=== PATIENT | male | born 1985 | race Caucasian/White ===

== ENCOUNTER 2019-11-14 13:53 | Emergency (ER) | payer OTHER ==
[2019-11-14] MEDS ORDERED: Sodium Chloride 0.9% 10 ML Syringe FLUSH PRN (14:19)
[2019-11-14] MEDS ORDERED: Ondansetron 4 MG/2 ML SDV IVPUSH ONE (14:20)
[2019-11-14] MEDS ORDERED: Alum Hydrox/Mag Hydrox/Simeth 30 ML, Lidocaine 2% 15 ML PO ONE ×2 (14:59)
--- NOTE | 2019-11-14 15:04 | EDM.PDOC ---
ED HPI GENERAL MEDICAL PROBLEM - General Chief Complaint: Chest Pain Stated Complaint: CHEST/BACK PAIN Time Seen by Provider: 11/14/19 14:19 Source of Information: Reports: Patient, RN Notes Reviewed History Limitations: Reports: No Limitations - History of Present Illness INITIAL COMMENTS - FREE TEXT/NARRATIVE: Patient is a 33-year-old male who presents to the ED for the evaluation of some lower chest pain/back pain. The patient states that this started around 2 hours ago. He notes that he was laying on his couch when he suddenly developed the pain. The patient notes this is more in his epigastrium/mid chest, with radiation to his back. Patient states that he has been nauseated, but has not had any vomiting. Patient notes that he last ate at around 9:30am this morning , and had a sausage egg sandwich. He did not have lunch. Patient denies any other sick-like symptoms. He denies any other cardiac history or lung history. Patient states that he stopped smoking 6 months ago, he does drink vodka sodas on a daily basis, and states last night he did drink a little bit more than he normally does. Patient notes the pain to be a dull ache/gnawing pain in nature, and is constant. Patient thinks that the pain did start roughly 1/2- hour to an hour after eating. Chest Pain Score (Numeric/FACES): 7 - Related Data Allergies Allergy/AdvReac Type Severity Reaction Status Date / Time No Known Allergies Allergy Verified 11/14/19 13:59 Home Meds: Home Meds Hyoscyamine [Hyomax-SL] 0.125 mg SL Q4H PRN #20 tab.sl 11/14/19 [Rx] Ondansetron [Zofran ODT] 4 mg PO Q8H PRN #20 tab.dis 11/14/19 [Rx] Past Medical History - Past Health History Medical/Surgical History: Denies Medical/Surgical History - Infectious Disease History Infectious Disease History: Reports: Chicken Pox Social & Family History - Family History Family Medical History: Noncontributory - Tobacco Use Smoking Status *Q: Former Smoker Used Tobacco, but Quit: Yes Month/Year Tobacco Last Used: 08/2019 - Alcohol Use Alcohol Use History: Yes Days Per Week of Alcohol Use: 7 Days Per Week of Alcohol Use Comment: vodka sodas Number of Drinks Per Day: 3 Total Drinks Per Week: 21 Alcohol Use in Last Twelve Months: Yes Alcohol Use Frequency: Daily - Recreational Drug Use Recreational Drug Use: No ED ROS GENERAL - Review of Systems Review Of Systems: See Below Constitutional: Denies: Fever, Chills, Decreased Appetite Respiratory: Denies: Shortness of Breath, Cough Cardiovascular: Reports: Chest Pain (epigastric/). Denies: Blood Pressure Problem, Dyspnea on Exertion, Edema, Lightheadedness, Palpitations GI/Abdominal: Reports: Abdominal Pain (epgastrium with radiation to back), Nausea. Denies: Vomiting : Denies: Dysuria, Frequency, Urgency Musculoskeletal: Reports: Back Pain (that radiates from front lower chest/ epigastrium). Denies: Neck Pain, Arm Pain Neurological: Denies: Dizziness, Headache Psychiatric: Denies: Anxiety ED EXAM, GENERAL - Physical Exam Exam: See Below Exam Limited By: No Limitations General Appearance: Alert, WD/WN, No Apparent Distress Eye Exam: Bilateral Eye: EOMI, Normal Inspection, PERRL Throat/Mouth: Normal Inspection, Normal Lips, Normal Teeth, Normal Gums, Normal Oropharynx, Normal Voice, No Airway Compromise Head: Atraumatic, Normocephalic Neck: Normal Inspection, Supple, Non-Tender, Full Range of Motion Respiratory/Chest: No Respiratory Distress, Lungs Clear, Normal Breath Sounds, No Accessory Muscle Use, Chest Non-Tender Cardiovascular: Normal Peripheral Pulses, Regular Rate, Rhythm, No Edema, No JVD , No Murmur Peripheral Pulses: 3+: Radial (L), Radial (R) GI/Abdominal: Normal Bowel Sounds, Soft, Non-Tender, No Distention, No Mass Extremities: Normal Inspection, Normal Capillary Refill Neurological: Alert, Oriented, Normal Cognition, No Motor/Sensory Deficits Psychiatric: Normal Affect, Normal Mood Skin Exam: Warm, Dry, Intact, Normal Color, No Rash Course - Vital Signs Last Recorded V/S: Last Vital Signs Temp 97.4 F 11/14/19 13:59 Pulse 85 11/14/19 13:59 Resp 16 11/14/19 13:59 BP 164/100 H 11/14/19 13:59 Pulse Ox 99 11/14/19 13:59 - Orders/Labs/Meds Orders: Active Orders 24 hr Category Date Time Status EKG Documentation Completion [RC] STAT Care 11/14/19 14:19 Active Peripheral IV Care [RC] . DIRECTED Care 11/14/19 14:19 Active Sodium Chloride 0.9% [Saline Flush] Med 11/14/19 14:19 Active 10 ml FLUSH ASDIRECTED PRN Peripheral IV Insertion Adult [OM.PC] Stat Oth 11/14/19 14:19 Ordered Medication Orders Sodium Chloride (Saline Flush) 10 ml FLUSH ASDIRECTED PRN PRN Reason: Keep Vein Open Last Admin: 11/14/19 14:31 Dose: 10 ml Labs: Laboratory Tests 11/14/19 11/14/19 11/14/19 Range/Units 14:30 14:30 14:30 WBC 5.08 (4.23-9.07) K/mm3 RBC 5.26 (4.63-6.08) M/mm3 Hgb 15.5 (13.7-17.5) gm/dl Hct 46.6 (40.1-51.0) % MCV 88.6 (79.0-92.2) fl MCH 29.5 (25.7-32.2) pg MCHC 33.3 (32.2-35.5) g/dl RDW Std Deviation 42.1 (35.1-43.9) fL Plt Count 295 (163-337) K/mm3 MPV 9.3 L (9.4-12.3) fl Neutrophils % (Manual) 45 (40-60) % Band Neutrophils % 1 (0-10) % Lymphocytes % (Manual) 41 H (20-40) % Atypical Lymphs % 0 % Monocytes % (Manual) 7 (2-10) % Eosinophils % (Manual) 6 (0.8-7.0) % Basophils % (Manual) 0 L (0.2-1.2) Platelet Estimate Adequate Plt Morphology Comment Normal RBC Morph Comment Normal PT 10.3 (9.7-12.0) SECONDS INR 0.94 APTT 26 (22-31) SECONDS Sodium 142 (136-145) mEq/L Potassium 3.7 (3.5-5.1) mEq/L Chloride 105 (98-107) mEq/L Carbon Dioxide 28 (21-32) mEq/L Anion Gap 12.7 (5-15) BUN 9 (7-18) mg/dL Creatinine 1.0 (0.7-1.3) mg/dL Est Cr Clr Drug Dosing 130.20 mL/min Estimated GFR (MDRD) > 60 (>60) mL/min BUN/Creatinine Ratio 9.0 L (14-18) Glucose 101 (74-106) mg/dL Calcium 9.7 (8.5-10.1) mg/dL Magnesium 1.9 (1.8-2.4) mg/dl Total Bilirubin 0.4 (0.2-1.0) mg/dL GGT (15-85) U/L AST 16 (15-37) U/L ALT 44 (16-63) U/L Alkaline Phosphatase 74 (46-116) U/L Troponin I < 0.017 (0.00-0.056) ng/mL NT-Pro-B Natriuret Pep (0-125) pg/mL Total Protein 8.2 (6.4-8.2) g/dl Albumin 4.2 (3.4-5.0) g/dl Globulin 4.0 gm/dL Albumin/Globulin Ratio 1.1 (1-2) Lipase 107 (73-393) U/L 11/14/19 11/14/19 Range/Units 14:30 14:30 WBC (4.23-9.07) K/mm3 RBC (4.63-6.08) M/mm3 Hgb (13.7-17.5) gm/dl Hct (40.1-51.0) % MCV (79.0-92.2) fl MCH (25.7-32.2) pg MCHC (32.2-35.5) g/dl RDW Std Deviation (35.1-43.9) fL Plt Count (163-337) K/mm3 MPV (9.4-12.3) fl Neutrophils % (Manual) (40-60) % Band Neutrophils % (0-10) % Lymphocytes % (Manual) (20-40) % Atypical Lymphs % % Monocytes % (Manual) (2-10) % Eosinophils % (Manual) (0.8-7.0) % Basophils % (Manual) (0.2-1.2) Platelet Estimate Plt Morphology Comment RBC Morph Comment PT (9.7-12.0) SECONDS INR APTT (22-31) SECONDS Sodium (136-145) mEq/L Potassium (3.5-5.1) mEq/L Chloride (98-107) mEq/L Carbon Dioxide (21-32) mEq/L Anion Gap (5-15) BUN (7-18) mg/dL Creatinine (0.7-1.3) mg/dL Est Cr Clr Drug Dosing mL/min Estimated GFR (MDRD) (>60) mL/min BUN/Creatinine Ratio (14-18) Glucose (74-106) mg/dL Calcium (8.5-10.1) mg/dL Magnesium (1.8-2.4) mg/dl Total Bilirubin (0.2-1.0) mg/dL GGT 116 H (15-85) U/L AST (15-37) U/L ALT (16-63) U/L Alkaline Phosphatase (46-116) U/L Troponin I (0.00-0.056) ng/mL NT-Pro-B Natriuret Pep 25 (0-125) pg/mL Total Protein (6.4-8.2) g/dl Albumin (3.4-5.0) g/dl Globulin gm/dL Albumin/Globulin Ratio (1-2) Lipase (73-393) U/L Meds: Medications Generic Name Dose Route Start Last Admin Trade Name Freq PRN Reason Stop Dose Admin Sodium Chloride 10 ml 11/14/19 14:19 11/14/19 14:31 Saline Flush FLUSH 10 ml ASDIRECTED PRN Administration Keep Vein Open Discontinued Medications Generic Name Dose Route Start Last Admin Trade Name Freq PRN Reason Stop Dose Admin Al Hydroxide/Mg Hydroxide 30 0 ml 11/14/19 14:59 11/14/19 15:28 ml/ Lidocaine HCl 15 ml PO 11/14/19 15:00 45 ml ONETIME ONE Administration Hyoscyamine 0.125 mg 11/14/19 16:06 11/14/19 16:18 Hyomax-Sl SL 11/14/19 16:07 0.125 mg ONETIME ONE Administration Hyoscyamine 0.125 mg 11/14/19 17:56 Hyomax-Sl SL 11/14/19 17:57 ONETIME ONE Ondansetron HCl 4 mg 11/14/19 14:20 11/14/19 14:31 Zofran IVPUSH 11/14/19 14:21 4 mg ONETIME ONE Administration - Re-Assessments/Exams Free Text/Narrative Re-Assessment/Exam: 11/14/19 15:05 Patient presents to the ED for lower chest/epigastric pain with radiation to his back. Patient does have a port extensive alcohol use history, suspect possible alcoholic pancreatitis versus reflux disease versus gallbladder disease in nature. EKG was done and demonstrates no acute ST changes at this time. Reviewed with Dr. Mix. I did order other labs for further evaluation , chest x-ray and 4mg Zofran with a GI cocktail for initial management. 11/14/19 16:06 Patient's chest x-ray is within normal limits. All other laboratory evaluation seems to be within normal limits as well, lipase is within normal limits. The patient's GGT was slightly elevated at 116. Since the patient has not eaten since 9:30 this morning, I will go ahead and order a gallbladder ultrasound for further evaluation. 11/14/19 17:58 The patient's gallbladder ultrasound demonstrates a hypoechoic area within the mid right kidney most likely representing a parapelvic cyst. Minimal sludge within the gallbladder without shadowing gallstones or gallbladder with wall thickening. Upper limits of normal size of the common bile duct, which is 7.0 mm. There is an obscured pancreas, otherwise no other abnormalities noted. Patient did report good pain relief from the Levsin, I will provide him with a few tablets of this and Zofran on outpatient basis, I did call Dr. Calix for further referral, and he suggests getting an outpatient MRCP for further evaluation and trialing Prilosec to see if this doesn't also help symptoms. I will provide the patient with an outpatient order for this, and have him follow- up with his regular care provider or Dr. Calix. Departure - Departure Time of Disposition: 18:00 Disposition: Home, Self-Care 01 Condition: Good Clinical Impression: Biliary colic, Common bile duct dilation Prescriptions: Hyoscyamine [Hyomax-SL] 0.125 mg SL Q4H PRN #20 tab.sl PRN Reason: Pain Ondansetron [Zofran ODT] 4 mg PO Q8H PRN #20 tab.dis PRN Reason: Nausea Instructions: Magnetic Resonance Cholangiopancreatogram, Biliary Colic, Adult, Gallbladder Eating Plan Referrals: PCP,None [Primary Care Provider] - Forms: ED Department Discharge Additional Instructions: You were evaluated in the ER today regarding your epigastric pain. Your laboratory evaluation demonstrated that the pain is not of cardiac etiology and is more suggestive of gallbladder etiology. Your ultrasound demonstrated some sludge in your gallbladder, and a dilated common bile duct. Our general surgeon, Dr. Ifeanyi Calix was consulted on your case, and he suggested getting an outpatient MRCP, which is an MRI of your bile duct system to further evaluate function of your gallbladder. It was also suggested that you trial Prilosec (omeprazole) on an outpatient basis, you may obtain this at any retail space like [email or web address], or any pharmacy. Please take as directed on the back of the box, it's usually 40 mg or 1 tablet daily. You have been provided with a gallbladder diet eating plan, please try to avoid fatty foods as much as possible, as these types of foods aggravate pain from the gallbladder. You were given a prescription for Levsin, which is a smooth muscle relaxer, that works directly on the gallbladder pain as a seem to help your pain mostly in the ER. Please take 1 tab every 4 hours dissolvable by tongue as needed for further pain relief. You were given some tablets of Zofran, and antinausea medication, please take 1 tab dissolvable by tongue every 8 hours as needed for further nausea. These prescriptions were electronically prescribed to the [facility] pharmacy located on [place], you will need to go there tomorrow, Friday, November 15, 2019 and fill these medications and take as prescribed. You may call our clinic, to obtain a follow-up appointment with Dr. Calix, or you may also follow-up with your regular care provider, Dr. Patel if desired, a copy of the MRCP will be provided to both providers. Please return to the ER at any time however if symptoms change or worsen. Sepsis Event Note - Evaluation Sepsis Screening Result: No Definite Risk - Focused Exam Vital Signs: Vital Signs Temp Pulse Resp BP Pulse Ox 11/14/19 13:59 97.4 F 85 16 164/100 H 99 Date Exam was Performed: 11/14/19 Time Exam was Performed: 17:58 - My Orders Last 24 Hours: My Active Orders 11/14/19 14:19 EKG Documentation Completion [RC] STAT Peripheral IV Care [RC] . DIRECTED Sodium Chloride 0.9% [Saline Flush] 10 ml FLUSH ASDIRECTED PRN Peripheral IV Insertion Adult [OM.PC] Stat - Assessment/Plan Last 24 Hours: My Active Orders 11/14/19 14:19 EKG Documentation Completion [RC] STAT Peripheral IV Care [RC] . DIRECTED Sodium Chloride 0.9% [Saline Flush] 10 ml FLUSH ASDIRECTED PRN Peripheral IV Insertion Adult [OM.PC] Stat
--- NOTE | 2019-11-14 15:10 | CR ---
Chest: 2 views of the chest were obtained. Comparison: No prior chest imaging is available. Heart size and mediastinum are normal. Lungs are clear with no acute parenchymal change. Bony structures are unremarkable for the patient's age. Impression: 1. Nothing acute is appreciated on 2 view chest x-ray. Diagnostic code #1 Study was dictated in MDT
[2019-11-14] MEDS ORDERED: Hyoscyamine 0.125 MG Tab.SL SL ONE ×2 (16:06→17:56)
--- NOTE | 2019-11-14 17:33 | US ---
Limited abdominal ultrasound: Multiple real-time images of the upper right abdomen were obtained. Comparison: No prior abdominal imaging is available. Liver shows no focal parenchymal abnormality. Minimal sludge is seen within the gallbladder. Gallbladder shows no shadowing gallstones. No gallbladder wall thickening is seen. Common bile duct measures at the upper limits of normal at 7.0 mm. Hypoechoic area is noted within the mid right kidney most likely representing a parapelvic cyst measuring 4.4 cm in greatest dimension. Pancreas is completely obscured from bowel gas. Inferior vena cava is patent. Main portal vein shows normal hepatopedal flow. Impression: 1. Hypoechoic area within the mid right kidney most likely representing a parapelvic cyst. 2. Minimal sludge within the gallbladder without shadowing gallstones or gallbladder wall thickening. 3. Upper limits of normal size of the CBD. 4. Obscured pancreas. Diagnostic code #2 Study was dictated in MDT
== END 2019-11-14 18:26 | disposition home or self-care (01) ==
LOC: JD.ED 13:53
DX: K80.50 Calculus of bile duct without cholangitis or cholecystitis without obstruction (principal); K83.8 Other specified diseases of biliary tract; Z87.891 Personal history of nicotine dependence
CPT/HCPCS: 36415; 71046; 76705; 80053; 82977; 83690; 83735; 83880; 84484; 85007; 85027; 85610; 85730; 93005; 96374; 99285; A9270; J2405; 93010; 99284

== ENCOUNTER 2020-02-21 09:13 | Emergency (ER) | payer OTHER ==
[2020-02-21] MEDS ORDERED: Naproxen 500 MG Tab PO ONE (09:57)
[2020-02-21] MEDS ORDERED: Cyclobenzaprine 10 MG Tab PO ONE (09:57)
[2020-02-21] MEDS ORDERED: Acetaminophen/HYDROcodone 325-5 MG Tab PO ONE (09:57)
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
--- NOTE | 2020-02-21 10:33 | CT ---
CT lumbar spine Technique: Multiple axial sections through the lumbar spine were obtained from above T12 inferiorly through the L5-S1 disc. Reconstructed coronal and sagittal images were obtained. Findings: Vertebral body heights are maintained. Schmorl node deformities are scattered throughout the spine. Moderate disc space narrowing is seen at L4-5. Circumferential disc bulge is noted at L4-5. Mild left-sided neural foraminal stenosis noted at L4-5. No fracture is appreciated. No abnormal subluxation is seen. Impression: 1. Degenerative change at L4-5 as described above. 2. Slight scoliosis. 3. Nothing acute is appreciated on CT study of the lumbar spine. Diagnostic code #2 This report was dictated in MDT
== END 2020-02-21 11:34 | disposition home or self-care (01) ==
LOC: JD.ED 09:13
DX: M54.41 Lumbago with sciatica, right side (principal); V86.59XA Driver of other special all-terrain or other off-road motor vehicle injured in nontraffic accident, initial encounter
CPT/HCPCS: 72131; 99284; A9270; 99283

== ENCOUNTER 2024-08-08 08:23 | Emergency (ER) | payer OTHER ==
[2024-08-08] MEDS ORDERED: Sodium Chloride 0.9% 10 ML Syringe FLUSH PRN (08:55)
[2024-08-08 09:17] LABS: BASOPHILS ABSOLUTE AUTO 0.1 K/mm3 (0.0-0.2); BASOPHILS PERCENT AUTO 0.7 % (0.0-1.0); EOSINOPHILS ABSOLUTE AUTO 0.2 K/mm3 (0.0-0.4); EOSINOPHILS PERCENT AUTO 2.5 % (0.0-6.0); HEMATOCRIT 51.8 % (42.0-52.0); HEMOGLOBIN 18.2 gm/dl (14.0-18.0); IMMATURE GRAN ABSOLUTE AUTO 0.03 K/mm3 (0.00-0.05); IMMATURE GRAN PERCENT AUTO 0.4 % (0.0-0.4); LYMPHOCYTES ABSOLUTE AUTO 2.2 K/mm3 (1.0-4.8); LYMPHOCYTES PERCENT AUTO 25.6 % (24.0-44.0); MEAN CORPUSCULAR HEMOGLOBIN 31.9 pg (28.0-32.0); MEAN CORPUSCULAR HGB CONC 35.1 g/dl (32.0-36.0); MEAN CORPUSCULAR VOLUME 90.9 fl (83.0-99.0); MEAN PLATELET VOLUME 9.4 fl (9.4-12.4); MONOCYTES PERCENT AUTO 11.3 % (0.0-8.0); NEUTROPHILS ABSOLUTE AUTO 5.1 K/mm3 (1.8-7.7); NEUTROPHILS PERCENT AUTO 59.5 % (41.0-71.0); PLATELET COUNT,PLT 348 K/mm3 (150-400); WHITE BLOOD CELL COUNT,WBC 8.53 K/mm3 (3.9-11.3)
[2024-08-08 09:29] LABS: A/G RATIO 0.8 (1-2); ALANINE AMINOTRANSFERASE,ALT 133 U/L (16-63); ALBUMIN 3.7 g/dl (3.4-5.0); ALKALINE PHOSPHATASE 100 U/L (46-116); ANION GAP 17.2 (5-15); ASPARTATE AMNIOTRANSFERASE,AST 127 U/L (15-37); BILIRUBIN TOTAL 0.7 mg/dL (0.2-1.0); BLOOD UREA NITROGEN,BUN 3 mg/dL (7-18); CALCIUM 8.9 mg/dL (8.5-10.1); CARBON DIOXIDE,CO2 28 mEq/L (21-32); CHLORIDE,CL 98 mEq/L (98-107); EST CRCL DRUG DOSING (CG) 127.46 mL/min; ESTIMATED GFR 99 mL/min (>60); GLUCOSE RANDOM 94 mg/dL (70-99); MAGNESIUM 1.8 mg/dL (1.8-2.4); POTASSIUM,K 3.2 mEq/L (3.5-5.1); PROTEIN TOTAL,TP 8.5 g/dl (6.4-8.2); SODIUM,NA 140 mEq/L (136-145); TROPONIN I HIGH SENSITIVITY < 4 pg/mL (<=76)
[2024-08-08] MEDS: Aspirin 81 MG Tab.Chew PO ONE (10:08)
== END 2024-08-08 11:02 | disposition home or self-care (01) ==
LOC: JD.ED 08:23
DX: R07.89 Other chest pain (principal); J06.9 Acute upper respiratory infection, unspecified; B97.89 Other viral agents as the cause of diseases classified elsewhere; F17.210 Nicotine dependence, cigarettes, uncomplicated; Z79.899 Other long term (current) drug therapy
CPT/HCPCS: 36415; 71046; 71046-26; 80053; 83735; 84484; 85025; 85379; 87428-QW; 93005; 99285

== ENCOUNTER 2024-08-17 19:22 | Inpatient (IN) | payer OTHER ==
[2024-08-17] MEDS ORDERED: Sodium Chloride 0.9% 10 ML Syringe FLUSH PRN (19:43)
[2024-08-17] MEDS ORDERED: Naloxone 0.4 MG/ML SDV IVPUSH PRN ×2 (20:22→21:15)
[2024-08-17] MEDS: HYDROmorphone 0.5 MG/0.5 ML Syringe IVPUSH ONE ×2 (20:43→21:21)
[2024-08-17] MEDS: Sodium Chloride 0.9% 1,000 ML IV ONE ×2 (20:43→22:00)
[2024-08-17] MEDS: Ondansetron 4 MG/2 ML SDV IVPUSH ONE (20:44)
[2024-08-17 21:01] LABS: BASOPHILS ABSOLUTE AUTO 0.1 K/mm3 (0.0-0.2); BASOPHILS PERCENT AUTO 0.5 % (0.0-1.0); EOSINOPHILS ABSOLUTE AUTO 0.2 K/mm3 (0.0-0.4); EOSINOPHILS PERCENT AUTO 1.9 % (0.0-6.0); HEMATOCRIT 49.2 % (42.0-52.0); HEMOGLOBIN 17.4 gm/dl (14.0-18.0); IMMATURE GRAN ABSOLUTE AUTO 0.03 K/mm3 (0.00-0.05); IMMATURE GRAN PERCENT AUTO 0.3 % (0.0-0.4); LYMPHOCYTES ABSOLUTE AUTO 1.5 K/mm3 (1.0-4.8); LYMPHOCYTES PERCENT AUTO 14.2 % (24.0-44.0); MEAN CORPUSCULAR HGB CONC 35.4 g/dl (32.0-36.0); MEAN CORPUSCULAR VOLUME 90.6 fl (83.0-99.0); MEAN PLATELET VOLUME 9.4 fl (9.4-12.4); MONOCYTES ABSOLUTE AUTO 1.4 K/mm3 (0.0-0.8); MONOCYTES PERCENT AUTO 12.6 % (0.0-8.0); NEUTROPHILS ABSOLUTE AUTO 7.7 K/mm3 (1.8-7.7); NEUTROPHILS PERCENT AUTO 70.5 % (41.0-71.0); PLATELET COUNT,PLT 287 K/mm3 (150-400); RED BLOOD CELL COUNT 5.43 M/mm3 (4.52-5.90); WHITE BLOOD CELL COUNT,WBC 10.85 K/mm3 (3.9-11.3)
[2024-08-17 21:35] LABS: A/G RATIO 0.9 (1-2); ALANINE AMINOTRANSFERASE,ALT 122 U/L (16-63); ALBUMIN 3.6 g/dl (3.4-5.0); ALKALINE PHOSPHATASE 94 U/L (46-116); ASPARTATE AMNIOTRANSFERASE,AST 110 U/L (15-37); BILIRUBIN TOTAL 1.8 mg/dL (0.2-1.0); BLOOD UREA NITROGEN,BUN 7 mg/dL (7-18); BUN/CREATININE RATIO 5.8 (14-18); CARBON DIOXIDE,CO2 28 mEq/L (21-32); CHLORIDE,CL 100 mEq/L (98-107); CREATININE 1.2 mg/dL (0.7-1.3); EST CRCL DRUG DOSING (CG) 106.22 mL/min; ESTIMATED GFR 80 mL/min (>60); GLUCOSE RANDOM 114 mg/dL (70-99); MAGNESIUM 1.2 mg/dL (1.8-2.4); PROTEIN TOTAL,TP 7.8 g/dl (6.4-8.2); SODIUM,NA 139 mEq/L (136-145)
[2024-08-17 21:52] LABS: LACTIC ACID 2.9 mmol/L (0.4-2.0); LIPASE 294 U/L (16-77); TROPONIN I HIGH SENSITIVITY < 4 pg/mL (<=76)
[2024-08-17] MEDS: Iopamidol 612 MG/ML 100 ML Bottle IVPUSH ONE (22:06)
[2024-08-17] MEDS: Ketorolac 30 MG/ML SDV IVPUSH ONE (22:42)
[2024-08-17] MEDS: Sodium Chloride 0.9% 1,000 ML ONE (22:44)
[2024-08-18 00:04] LABS: APPEARANCE,URINE CLEAR (Clear); BILIRUBIN,URINE 1+ (Negative); COLOR,URINE DARK YELLOW (Yellow); GLUCOSE,URINE NEGATIVE (Negative); KETONES,URINE NEGATIVE (Negative); LEUKOCYTE ESTERASE,URINE NEGATIVE (Negative); NITRITE,URINE NEGATIVE (Negative); OCCULT BLOOD,URINE NEGATIVE (Negative); PROTEIN,URINE 2+ (Negative); UROBILINOGEN,URINE 0.2 (0.2-1.0)
[2024-08-18 00:13] LABS: BARBITURATE SCREEN,URINE NEGATIVE (CUTOFF=200); BENZODIAZEPINES SCREEN,URINE PRESUMPTIVE POSITIVE (CUTOFF=150); BUPRENORPHINE SCREEN,URINE NEGATIVE (CUTOFF=10); METHADONE SCREEN, URINE NEGATIVE (CUT0FF=200); METHAMPHETAMINES SCREEN, URINE PRESUMPTIVE POSITIVE (CUTOFF=500); OXYCODONE SCREEN,URINE NEGATIVE (CUT0FF=100); THC SCREEN,URINE 20 NG/ML NEGATIVE (CUTOFF=50)
[2024-08-18 00:27] LABS: AMPHETAMINES SCREEN, URINE PRESUMPTIVE POSITIVE (CUTOFF=500)
[2024-08-18] MEDS: Sodium Chloride 0.9% 1,000 ML IV ONE (01:38)
[2024-08-18] MEDS: HYDROmorphone 0.5 MG/0.5 ML Syringe IVPUSH PRN (01:38)
[2024-08-18] MEDS: Melatonin 3 MG Tab PO PRN (02:48)
[2024-08-18] MEDS: Ketorolac 30 MG/ML SDV IV PRN (02:51)
[2024-08-18] MEDS: Lactated Ringers 1,000 ML IV ONE ×2 (06:23→07:58)
[2024-08-18] MEDS: Lactated Ringers 1,000 ML ONE (08:00)
[2024-08-18] MEDS: Enoxaparin 40 MG/0.4 ML Syringe SUBCUT SCH (08:00)
[2024-08-18] MEDS: Potassium Chloride 10 MEQ in Premix Bag 1 BAG IV SCH (09:00)
[2024-08-18] MEDS: Magnesium Sulfate/Water Premix 4 GM in Premix Bag 1 BAG IV ONE (09:02)
[2024-08-18] MEDS ORDERED: NS + KCl 20mEq/L 1,000 ML IV SCH (09:30)
[2024-08-18] MEDS ORDERED: Lactated Ringers 1,000 ML IV SCH (12:00)
[2024-08-18] MEDS: NS + KCl 20mEq/L 1,000 ML IV SCH (14:14)
[2024-08-18] MEDS: oxyCODONE 5 MG Tab PO PRN (20:55)
[2024-08-19] MEDS: Acetaminophen 325 MG Tab PO PRN (00:01)
[2024-08-19] MEDS: Temazepam 15 MG Cap PO PRN (00:01)
[2024-08-19 04:38] LABS: BASOPHILS PERCENT AUTO 0.5 % (0.0-1.0); EOSINOPHILS ABSOLUTE AUTO 0.3 K/mm3 (0.0-0.4); EOSINOPHILS PERCENT AUTO 2.9 % (0.0-6.0); HEMATOCRIT 44.1 % (42.0-52.0); HEMOGLOBIN 14.6 gm/dl (14.0-18.0); IMMATURE GRAN ABSOLUTE AUTO 0.03 K/mm3 (0.00-0.05); IMMATURE GRAN PERCENT AUTO 0.3 % (0.0-0.4); LYMPHOCYTES PERCENT AUTO 12.1 % (24.0-44.0); MEAN CORPUSCULAR HEMOGLOBIN 31.4 pg (28.0-32.0); MEAN CORPUSCULAR HGB CONC 33.1 g/dl (32.0-36.0); MEAN CORPUSCULAR VOLUME 94.8 fl (83.0-99.0); MEAN PLATELET VOLUME 9.6 fl (9.4-12.4); MONOCYTES ABSOLUTE AUTO 0.8 K/mm3 (0.0-0.8); MONOCYTES PERCENT AUTO 9.2 % (0.0-8.0); NEUTROPHILS ABSOLUTE AUTO 6.5 K/mm3 (1.8-7.7); PLATELET COUNT,PLT 201 K/mm3 (150-400); RED BLOOD CELL COUNT 4.65 M/mm3 (4.52-5.90); WHITE BLOOD CELL COUNT,WBC 8.61 K/mm3 (3.9-11.3)
[2024-08-19 05:20] LABS: A/G RATIO 0.7 (1-2); ALBUMIN 2.6 g/dl (3.4-5.0); ANION GAP 12.7 (5-15); BILIRUBIN TOTAL 5.2 mg/dL (0.2-1.0); CALCIUM 7.7 mg/dL (8.5-10.1); EST CRCL DRUG DOSING (CG) 141.63 mL/min; MAGNESIUM 1.8 mg/dL (1.8-2.4); PHOSPHORUS 3.1 mg/dL (2.6-4.7); POTASSIUM,K 3.7 mEq/L (3.5-5.1)
[2024-08-19 05:32] LABS: CREATININE 0.9 mg/dL (0.7-1.3); PROTEIN TOTAL,TP 6.4 g/dl (6.4-8.2)
[2024-08-19] MEDS: Magnesium Sulfate/Water Premix 2 GM in Premix Bag 1 BAG IV ONE (08:02)
[2024-08-19] MEDS: Potassium Chloride 10 MEQ in Premix Bag 1 BAG IV SCH (08:03)
[2024-08-19] MEDS: oxyCODONE 5 MG Tab PO PRN (12:17)
[2024-08-19] MEDS ORDERED: NS + KCl 20mEq/L 1,000 ML IV SCH (12:45)
[2024-08-19] MEDS: D5 1/2 NS w/ 20 mEq/L KCl 1,000 ML IV SCH (13:18)
[2024-08-20] MEDS: Ondansetron 4 MG/2 ML SDV IV PRN (01:29)
[2024-08-20 04:40] LABS: BASOPHILS PERCENT AUTO 0.3 % (0.0-1.0); EOSINOPHILS ABSOLUTE AUTO 0.2 K/mm3 (0.0-0.4); EOSINOPHILS PERCENT AUTO 1.9 % (0.0-6.0); HEMATOCRIT 43.3 % (42.0-52.0); HEMOGLOBIN 14.5 gm/dl (14.0-18.0); IMMATURE GRAN ABSOLUTE AUTO 0.03 K/mm3 (0.00-0.05); IMMATURE GRAN PERCENT AUTO 0.3 % (0.0-0.4); LYMPHOCYTES ABSOLUTE AUTO 0.9 K/mm3 (1.0-4.8); LYMPHOCYTES PERCENT AUTO 7.9 % (24.0-44.0); MEAN CORPUSCULAR HEMOGLOBIN 31.9 pg (28.0-32.0); MEAN CORPUSCULAR HGB CONC 33.5 g/dl (32.0-36.0); MEAN CORPUSCULAR VOLUME 95.4 fl (83.0-99.0); MEAN PLATELET VOLUME 9.9 fl (9.4-12.4); MONOCYTES ABSOLUTE AUTO 1.1 K/mm3 (0.0-0.8); MONOCYTES PERCENT AUTO 10.1 % (0.0-8.0); NEUTROPHILS ABSOLUTE AUTO 8.6 K/mm3 (1.8-7.7); NEUTROPHILS PERCENT AUTO 79.5 % (41.0-71.0); PLATELET COUNT,PLT 182 K/mm3 (150-400); RED BLOOD CELL COUNT 4.54 M/mm3 (4.52-5.90); WHITE BLOOD CELL COUNT,WBC 10.81 K/mm3 (3.9-11.3)
[2024-08-20 05:09] LABS: A/G RATIO 0.6 (1-2); ALBUMIN 2.5 g/dl (3.4-5.0); ANION GAP 12.1 (5-15); BILIRUBIN TOTAL 4.8 mg/dL (0.2-1.0); BUN/CREATININE RATIO 6.3 (14-18); CALCIUM 7.7 mg/dL (8.5-10.1); EST CRCL DRUG DOSING (CG) 159.33 mL/min; MAGNESIUM 1.9 mg/dL (1.8-2.4)
[2024-08-20 05:24] LABS: CREATININE 0.8 mg/dL (0.7-1.3); POTASSIUM,K 4.1 mEq/L (3.5-5.1); PROTEIN TOTAL,TP 6.5 g/dl (6.4-8.2)
[2024-08-20] MEDS: Gadobenate Dimeglumine 529 MG/ML 20 ML SDV IVPUSH ONE (08:28)
[2024-08-20] MEDS: Sodium Chloride 0.9% 10 ML Syringe FLUSH SCH (08:28)
[2024-08-20] MEDS: NS + KCl 20mEq/L 1,000 ML IV SCH (09:13)
[2024-08-20] MEDS ORDERED: NS + KCl 20mEq/L 1,000 ML IV SCH (12:15)
[2024-08-20] MEDS: Dextrose 5%-0.9% NaCl with KCl 1,000 ML IV SCH (15:10)
[2024-08-21 06:12] LABS: BASOPHILS PERCENT AUTO 0.4 % (0.0-1.0); EOSINOPHILS ABSOLUTE AUTO 0.2 K/mm3 (0.0-0.4); EOSINOPHILS PERCENT AUTO 1.9 % (0.0-6.0); HEMATOCRIT 41.8 % (42.0-52.0); IMMATURE GRAN ABSOLUTE AUTO 0.05 K/mm3 (0.00-0.05); IMMATURE GRAN PERCENT AUTO 0.4 % (0.0-0.4); LYMPHOCYTES PERCENT AUTO 8.7 % (24.0-44.0); MEAN CORPUSCULAR HEMOGLOBIN 32.1 pg (28.0-32.0); MEAN CORPUSCULAR HGB CONC 33.5 g/dl (32.0-36.0); MEAN CORPUSCULAR VOLUME 95.9 fl (83.0-99.0); MEAN PLATELET VOLUME 9.5 fl (9.4-12.4); MONOCYTES ABSOLUTE AUTO 1.4 K/mm3 (0.0-0.8); MONOCYTES PERCENT AUTO 11.9 % (0.0-8.0); NEUTROPHILS ABSOLUTE AUTO 8.7 K/mm3 (1.8-7.7); NEUTROPHILS PERCENT AUTO 76.7 % (41.0-71.0); PLATELET COUNT,PLT 205 K/mm3 (150-400); RED BLOOD CELL COUNT 4.36 M/mm3 (4.52-5.90); WHITE BLOOD CELL COUNT,WBC 11.35 K/mm3 (3.9-11.3)
[2024-08-21 06:44] LABS: A/G RATIO 0.6 (1-2); ALBUMIN 2.4 g/dl (3.4-5.0); BILIRUBIN TOTAL 3.2 mg/dL (0.2-1.0); BUN/CREATININE RATIO 7.5 (14-18); CALCIUM 7.9 mg/dL (8.5-10.1); CREATININE 0.8 mg/dL (0.7-1.3); EST CRCL DRUG DOSING (CG) 159.33 mL/min; MAGNESIUM 1.9 mg/dL (1.8-2.4); POTASSIUM,K 4.2 mEq/L (3.5-5.1); PROTEIN TOTAL,TP 6.7 g/dl (6.4-8.2)
[2024-08-21 06:56] LABS: ANION GAP 14.2 (5-15)
[2024-08-21] MEDS ORDERED: HYDROmorphone 0.5 MG/0.5 ML Syringe IVPUSH PRN (08:29)
[2024-08-22 06:01] LABS: BASOPHILS PERCENT AUTO 0.3 % (0.0-1.0); EOSINOPHILS ABSOLUTE AUTO 0.3 K/mm3 (0.0-0.4); EOSINOPHILS PERCENT AUTO 3.1 % (0.0-6.0); HEMATOCRIT 42.7 % (42.0-52.0); HEMOGLOBIN 14.1 gm/dl (14.0-18.0); IMMATURE GRAN ABSOLUTE AUTO 0.05 K/mm3 (0.00-0.05); IMMATURE GRAN PERCENT AUTO 0.5 % (0.0-0.4); LYMPHOCYTES ABSOLUTE AUTO 1.1 K/mm3 (1.0-4.8); LYMPHOCYTES PERCENT AUTO 11.4 % (24.0-44.0); MEAN CORPUSCULAR HEMOGLOBIN 31.4 pg (28.0-32.0); MEAN CORPUSCULAR VOLUME 95.1 fl (83.0-99.0); MEAN PLATELET VOLUME 9.5 fl (9.4-12.4); MONOCYTES ABSOLUTE AUTO 1.2 K/mm3 (0.0-0.8); MONOCYTES PERCENT AUTO 12.6 % (0.0-8.0); NEUTROPHILS ABSOLUTE AUTO 6.8 K/mm3 (1.8-7.7); NEUTROPHILS PERCENT AUTO 72.1 % (41.0-71.0); PLATELET COUNT,PLT 221 K/mm3 (150-400); RED BLOOD CELL COUNT 4.49 M/mm3 (4.52-5.90); WHITE BLOOD CELL COUNT,WBC 9.42 K/mm3 (3.9-11.3)
[2024-08-22 06:24] LABS: A/G RATIO 0.5 (1-2); ALBUMIN 2.4 g/dl (3.4-5.0); ANION GAP 10.7 (5-15); BILIRUBIN TOTAL 2.3 mg/dL (0.2-1.0); BUN/CREATININE RATIO 7.5 (14-18); CALCIUM 8.4 mg/dL (8.5-10.1); CREATININE 0.8 mg/dL (0.7-1.3); EST CRCL DRUG DOSING (CG) 159.33 mL/min; POTASSIUM,K 3.7 mEq/L (3.5-5.1); PROTEIN TOTAL,TP 7.2 g/dl (6.4-8.2)
[2024-08-22] MEDS: Sodium Chloride 0.9% 1,000 ML IV SCH (08:14)
[2024-08-23 06:10] LABS: A/G RATIO 0.5 (1-2); ALBUMIN 2.3 g/dl (3.4-5.0); ANION GAP 13.7 (5-15); BILIRUBIN TOTAL 1.6 mg/dL (0.2-1.0); BUN/CREATININE RATIO 5.6 (14-18); CALCIUM 8.4 mg/dL (8.5-10.1); CREATININE 0.9 mg/dL (0.7-1.3); EST CRCL DRUG DOSING (CG) 141.63 mL/min; POTASSIUM,K 3.7 mEq/L (3.5-5.1); PROTEIN TOTAL,TP 7.1 g/dl (6.4-8.2)
== END 2024-08-23 08:59 | disposition home or self-care (01) | DRG 440 ==
LOC: JD.ED 19:22 → JD.MS 08-18 00:49
PROVIDERS: ADMIT Family Medicine; ATTEND Internal Medicine
DX: K85.90 Acute pancreatitis without necrosis or infection, unspecified (principal); G47.30 Sleep apnea, unspecified; F41.9 Anxiety disorder, unspecified; F17.210 Nicotine dependence, cigarettes, uncomplicated; E87.6 Hypokalemia; E83.42 Hypomagnesemia; R82.5 Elevated urine levels of drugs, medicaments and biological substances; F10.11 Alcohol abuse, in remission; K76.0 Fatty (change of) liver, not elsewhere classified; R79.89 Other specified abnormal findings of blood chemistry; K44.9 Diaphragmatic hernia without obstruction or gangrene; R91.1 Solitary pulmonary nodule; Z79.899 Other long term (current) drug therapy; Z98.890 Other specified postprocedural states; Z99.81 Dependence on supplemental oxygen
CPT/HCPCS: 36415; 74177; 74177-26; 74183; 74183-26; 76705; 76705-26; 80053; 80061; 80306; 80307; 81003; 82947; 83605; 83690; 83735; 84100; 84484; 85025; 93005; 93010; 96361; 96374; 96375; 96376; 99283; 99285-25; A9270-GY; A9577; J1650; J1885; J2405; J3475; J3480; J7030; J7120; Q9967

== ENCOUNTER 2024-09-01 11:38 | Emergency (ER) | payer OTHER ==
[2024-09-01] MEDS: Sodium Chloride 0.9% 1,000 ML IV ONE (12:47)
[2024-09-01 12:50] LABS: BASOPHILS ABSOLUTE AUTO 0.1 K/mm3 (0.0-0.2); EOSINOPHILS ABSOLUTE AUTO 0.5 K/mm3 (0.0-0.4); EOSINOPHILS PERCENT AUTO 5.4 % (0.0-6.0); HEMATOCRIT 48.7 % (42.0-52.0); HEMOGLOBIN 16.1 gm/dl (14.0-18.0); IMMATURE GRAN ABSOLUTE AUTO 0.06 K/mm3 (0.00-0.05); IMMATURE GRAN PERCENT AUTO 0.6 % (0.0-0.4); LYMPHOCYTES ABSOLUTE AUTO 1.8 K/mm3 (1.0-4.8); MEAN CORPUSCULAR HEMOGLOBIN 31.3 pg (28.0-32.0); MEAN CORPUSCULAR HGB CONC 33.1 g/dl (32.0-36.0); MEAN CORPUSCULAR VOLUME 94.6 fl (83.0-99.0); MEAN PLATELET VOLUME 9.3 fl (9.4-12.4); MONOCYTES ABSOLUTE AUTO 0.7 K/mm3 (0.0-0.8); MONOCYTES PERCENT AUTO 7.1 % (0.0-8.0); NEUTROPHILS ABSOLUTE AUTO 6.3 K/mm3 (1.8-7.7); NEUTROPHILS PERCENT AUTO 66.9 % (41.0-71.0); PLATELET COUNT,PLT 661 K/mm3 (150-400); RED BLOOD CELL COUNT 5.15 M/mm3 (4.52-5.90); WHITE BLOOD CELL COUNT,WBC 9.39 K/mm3 (3.9-11.3)
[2024-09-01 13:02] LABS: A/G RATIO 0.6 (1-2); ALBUMIN 3.2 g/dl (3.4-5.0); ANION GAP 12.1 (5-15); BILIRUBIN TOTAL 0.5 mg/dL (0.2-1.0); BUN/CREATININE RATIO 6.4 (14-18); CALCIUM 9.6 mg/dL (8.5-10.1); CREATININE 1.1 mg/dL (0.7-1.3); EST CRCL DRUG DOSING (CG) 115.88 mL/min; POTASSIUM,K 4.1 mEq/L (3.5-5.1); PROTEIN TOTAL,TP 8.2 g/dl (6.4-8.2)
[2024-09-01] MEDS: Sodium Chloride 0.9% 1,000 ML ONE (20:09)
== END 2024-09-01 14:05 | disposition home or self-care (01) ==
LOC: JD.ED 11:38
DX: R10.13 Epigastric pain (principal); R11.2 Nausea with vomiting, unspecified; D75.839 Thrombocytosis, unspecified; F17.210 Nicotine dependence, cigarettes, uncomplicated; Z79.899 Other long term (current) drug therapy
CPT/HCPCS: 36415; 80053; 83690; 85025; 96360; 96361; 99284; J7030